=== PATIENT | male | born 1960 | race Caucasian/White ===

== ENCOUNTER 2018-10-14 23:07 | Inpatient (IN) ==
[2018-10-14] MEDS ORDERED: ALTEPLASE IV STA (23:19)
[2018-10-14] MEDS ORDERED: ALTEPLASE, RECOMBINANT 62 MG in EMPTY BAG 0 ML IV STA (23:19)
[2018-10-14] MEDS ORDERED: ALTEPLASE For Stroke IV STA (23:19)
[2018-10-14] MEDS ORDERED: RECOMBINANT IV STA (23:19)
--- NOTE | 2018-10-14 23:25 | CT Scan Report ---
CT OF THE HEAD WITHOUT CONTRAST CLINICAL HISTORY: Stroke symptoms. COMPARISON STUDY: No previous studies for comparison. CT DOSE: 614.27 mGy.cm TECHNIQUE: Helical axial images of the head were obtained without IV contrast. Automated exposure con trol was utilized for the study. A dose lowering technique was utilized adhering to the principles o f ALARA. FINDINGS: No acute intracranial hemorrhage is present. The patient is mildly tilted. Mild asymmetry o f the lateral ventricles is noted. The basilar cisterns are patent. There are no extra-axial collecti ons. There are no findings to suggest acute dural sinus thrombosis or acute territorial infarct. Ther e are no significant calvarial abnormalities. IMPRESSION: 1. No acute intracranial hemorrhage. 2. Asymmetry of the lateral ventricles, a finding of questionable significance. Electronically signed by: Carrington Adan M.D. 10/14/2018 11:24 PM
[2018-10-14 23:42] LABS: iSTAT Creatinine 1.3 mg/dl (0.6-1.3); iSTAT Ionized Calcium 1.1 mmol/l (1.12-1.32); iSTAT Potassium 3.9 mEq/L (3.3-5.0)
[2018-10-14 23:43] LABS: Basophils # (auto) 0.03 K/uL (0-0.2); Basophils % (auto) 0.5 %; Eosinophils % (auto) 1.5 %; Hematocrit (blood only) 44.1 % (42-52); Hemoglobin 15.9 g/dL (14.0-18.0); Immature Granulocytes # (auto) 0.03 K/uL (0.00-0.02); Immature Granulocytes % (auto) 0.5 %; Lymphocytes # (auto) 2.46 K/uL (1.2-3.4); Lymphocytes % (auto) 37.7 %; Mean Corpuscular Hgb Conc 36.1 g/dL (32-36); Mean Corpuscular Volume 96.5 fL (80-100); Mean Platelet Volume 10.4 fL (7.4-10.4); Monocytes # (auto) 0.65 K/uL (0.11-0.59); Neutrophils # (auto) 3.25 K/uL (1.4-6.5); Neutrophils % (auto) 49.8 %; Platelet Count 163 K/uL (130-400); RDW Coefficient of Variation 12.1 % (11.5-14.5); RDW Standard Deviation 42.8 fL (36.4-46.3); Red Blood Count 4.57 M/uL (4.7-6.1); White Blood Count 6.52 K/uL (4.8-10.8)
[2018-10-14 23:53] LABS: Partial Thromboplastin Time 26.2 Seconds (21.0-31.0); Prothrombin Time 10.5 Seconds (9.0-12.0)
[2018-10-15 00:01] LABS: Alanine Aminotransferase 26 U/L (12-78); Albumin Level 3.6 gm/dl (3.4-5.0); Aspartate Aminotransferase 18 U/L (15-37); BUN Creatinine Ratio 14.5 (10-20); Blood Urea Nitrogen 17 mg/dl (7-18); Calcium 8.9 mg/dl (8.5-10.1); Carbon Dioxide 28 mmol/L (21-32); Chloride 107 mmol/L (98-107); Est GFR (African American) 81.4; Est GFR (Non-African American) 70.3; Glucose 90 mg/dl (70-99); Magnesium 2.5 mg/dl (1.8-2.4); Potassium 3.9 mmol/L (3.5-5.1); Sodium 140 mmol/L (136-145)
[2018-10-15 00:03] LABS: Amphetamines+Metham, Urine Neg (Neg); Barbiturates, Urine Neg (Neg); Benzodiazepine, Urine Neg (Neg); Cocaine, Urine Neg (Neg); MDMA (Ecstacy), Urine Neg (Neg); Methadone, Urine Neg (Neg); Opiate, Urine Neg (Neg); Phencyclidine, Urine Neg (Neg)
[2018-10-15] MEDS ORDERED: OPTIRAY 320 125ml IV PRN (00:03)
[2018-10-15 00:06] LABS: Albumin Globulin Ratio 1.2 (0.9-2); Alkaline Phosphatase 96 U/L (45-117); Bilirubin,Total 0.6 mg/dl (0.2-1); Globulin 3.1 gm/dl (2.5-4.0); Total Protein 6.7 gm/dl (6.4-8.2); Troponin I < 0.015 ng/ml (0-0.045)
[2018-10-15 02:21] LABS: Appearance Urine Clear (Clear); Bilirubin Urine Negative (Negative); Blood Urine Negative (Negative); Color Urine Yellow; Glucose Urine UA Negative (Negative); Ketones Urine Negative (Negative); Leukocyte Esterase Urine Negative (Negative); Nitrite Urine Negative (Negative); Protein Urine Negative (Negative); Specific Gravity Urine 1.019 (1.000-1.030); Urobilinogen Urine Negative (Negative); pH Urine 7.5 (4.5-7.5)
[2018-10-15] MEDS ORDERED: ICU PROTOCOL FOR HYPERGLYCEMIA PRN (03:13)
[2018-10-15] MEDS ORDERED: PHARMACIST DISCHARGE MED REC CONSULT PRN (03:21)
--- NOTE | 2018-10-15 03:32 | History and Physical Report ---
DATE OF ADMISSION: 10/15/2018 CHIEF COMPLAINT: Acute CVA. HISTORY OF PRESENT ILLNESS: This is a 58-year-old male, apparently no past medical history, he is not from area, he is visiting, he seemed to went for fishing and was driving back with his buddies in the car when he was slurring speech, 911 was called and was brought into the hospital. Initially he had slurred speech and also flaccid right extremities. This episode happened around 9:30, he was in the ER, around 11:30, TPA was given, his weakness in the right extremities has improved. His speech has improved, but he still has some memory issues. He says he is seeing double vision, but counting the fingers fine. Could not get much history from the patient. He knows that he is in the hospital and tell the month and year of his date of . Knows that this is the 5th month, but he says the year is 2011. Was somewhat drowsy and goes back to sleep. Will not get any history from the patient at this time, brother was here who left by the time I saw the patient, tried to call his brother and went to his voicemail but brother called back. Brother says as far as he knows patient not taking any medications and don't have any medical problems. Brother was not with the patient when the episode happened. ALLERGIES: No known drug allergies. PAST MEDICAL HISTORY: None as per the brother. MEDICATIONS: None. PAST SURGICAL HISTORY: Unobtainable at this time. SOCIAL HISTORY: Unobtainable at this time. FAMILY HISTORY: Unobtainable at this time. REVIEW OF SYSTEMS: Unobtainable at this time. PHYSICAL EXAMINATION: GENERAL: The patient is moderate built, somewhat drowsy. VITAL SIGNS: Temperature 36.5, pulse 50, respiratory rate 13, blood pressure 128/81, oxygen 93% room air. HEENT: No pallor, no icterus. Pupils equal, round, and reactive to light. NECK: No JVD, no neck mass, no carotid bruit. CARDIOVASCULAR: S1, S2 heard, regular rate and rhythm, no murmur, no gallop. RESPIRATORY SYSTEM: Normal AP diameter. No accessory muscle use. No wheezing, no crackles. ABDOMEN: Soft, bowel sounds present. Nontender. No distention. CENTRAL NERVOUS SYSTEM: Alert and awake and oriented to name and place, not good with the dates. Power 5/5 in all extremities. His sensation is intact. Position sense intact. [id number] test normal. No pronator drift. Speech is clear. Obeys simple commands but comprehension impaired at this time. EXTREMITIES: No edema, no erythema. LABORATORY DATA: WBC 6.5, hemoglobin 15.9, hematocrit 44.1, platelets 163. PT 10.5, INR 1, APTT 26.2. Sodium 140, potassium 3.9, chloride 107, bicarbonate 28, BUN 17, creatinine 1.1, serum glucose 90, calcium 8.9, magnesium 2.5, total bilirubin 0.6, AST 18, ALT 26, alkaline phosphatase 96, troponin I less than 0.015. Urinalysis negative. Toxicology screen negative. CT of the head, no acute intracranial findings. Asymmetry of the lateral ventricles finding of questionable significance. CT of the head and neck unremarkable as unofficial reports so we will wait for official report. EKG: Sinus bradycardia with a rate of 55. Nonspecific ST changes seen. ASSESSMENT AND PLAN: This is a 58-year-old male who presents with acute stroke. 1. Acute stroke with flaccid right extremities and slurred speech, status post TPA and right extremity weakness and speech improved, but still somewhat confused, says he is seeing double vision. Apparently no medical problems. Labs are okay so far. We will admit and monitor in the ICU, will do MRI of the head, echocardiogram, follow the official report of CTA of the head and neck. Start on high dose statin and start aspirin when it is safe to start. 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 Deep venous thrombosis prophylaxis, SCDs. Addendum: Lyme screen positive. Follow confirmation. empiric Doxycycline. DISPOSITION: Close monitor in the ICU. Level 1 full code. MTDD
[2018-10-15 03:47] LABS: Basophils # (auto) 0.03 K/uL (0-0.2); Basophils % (auto) 0.5 %; Eosinophils # (auto) 0.09 K/uL (0-0.5); Eosinophils % (auto) 1.5 %; Hematocrit (blood only) 42.8 % (42-52); Hemoglobin 15.2 g/dL (14.0-18.0); Immature Granulocytes # (auto) 0.01 K/uL (0.00-0.02); Immature Granulocytes % (auto) 0.2 %; Lymphocytes # (auto) 2.51 K/uL (1.2-3.4); Lymphocytes % (auto) 40.7 %; Mean Corpuscular Hgb Conc 35.5 g/dL (32-36); Mean Corpuscular Volume 95.1 fL (80-100); Mean Platelet Volume 10.7 fL (7.4-10.4); Monocytes % (auto) 9.7 %; Neutrophils # (auto) 2.92 K/uL (1.4-6.5); Neutrophils % (auto) 47.4 %; Platelet Count 174 K/uL (130-400); RDW Coefficient of Variation 12.2 % (11.5-14.5); RDW Standard Deviation 42.3 fL (36.4-46.3); White Blood Count 6.16 K/uL (4.8-10.8)
[2018-10-15] MEDS: SODIUM CHLORIDE 0.9% 1000ML 1,000 ML IV SCH ×2 (03:54→17:16)
--- NOTE | 2018-10-15 04:13 | Critical Care Consultation ---
Date of Consultation October 15, 2018 Assessment & Plan (1) Admitted to intensive care unit: Reason Critically Ill: 58-year-old male with acute CVA and resolved RIGHT- sided hemiparalysis. NEURO - * CAM ICU: NEGATIVE * Acute CVA s/p TPA administration: * Initial CT non-contrast unremarkable. * f/u CTA head/neck w/o acute findings. * Day [address] * f/u MRI, Echo ordered. * Appreciate Neuro guidance. CARDIAC/VASCULAR - * No h/o cardiovascular disease. * Is bradycardic in the 40s-50s. Question as to clinical significance. * Monitor on telemetry. RESPIRATORY - * No h/o pulmonary disease. * Saturating well. GI/NUTRITION - * No concerns. * Passed his dysphagia screening. * Will add AM diet. RENAL/LYTES - * No significant electrolyte abnormalities. * IVF: NSS@100mL/hr - * Perry in place - Strict I&Os. ENDO - * No h/o DM or Thyroid Dz * BSGs per unit protocol. ISS --> gtt per unit policy. HEME - * s/p TPA administration: * Continue per hospital protocol. * Monitor closely for bleeding. ID - * No concerns for infectious contribution at this time. LINES/IV ACCESS - * PIVs x2 DVT PROPHYLAXIS - * Will hold s/p TPA administration. * SCDs I have personally spent 35 minutes of critical care time in the direct management of this patient. This is a life/limb threatening event. This includes time spent evaluating patient, direct bedside care, chart review, placing orders, interpretation of diagnostic studies, discussion with consultants, patient, and family members, as well as other required patient management activities. This time is exclusive of all separately billable procedures, and teaching time and separate from and in addition to any other critical care service time. Thank you for allowing us to participate in the care of this patient. Please refer to my attending physician's documentation for any further recommendations. (2) Stroke: (3) Word finding difficulty: History of Present Illness Attending Physician: Saranya Coffman MD Patient is a 58-year-old male with no contributory past medical history who initially presented to the emergency department with acute CVA symptoms including altered level of consciousness and right-sided flaccid paralysis. His symptoms initially started at 9:30 PM and presentation to the emergency department at 11:30 PM. He received TPA after negative noncontrast CT of the brain. Shortly after, he developed near complete resolve all symptoms. He had a negative CTA of the head and neck as well. Patient remains with some word finding issues, but otherwise has nearly completely resolved at this point. On evaluation in the ICU, the patient is awake, alert, and oriented. He does have issues with word finding, but otherwise appears appropriate and without focal neurological deficits. Patient takes no daily medications. 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 All else were negative. Physical Exam Physical Exam: VITAL SIGNS - Vital signs and nursing notes were reviewed. GENERAL - 58-year-old male appearing his stated age who is in no acute distress. Communicates well with provider. Does have issues with word finding. HEAD - Normocephalic, Atraumatic. No Simpson's Sign or Raccoon's Eyes. No depressed skull fractures palpable. EYES - PERRL with EOMI bilaterally. Sclera anicteric. Palpebral conjunctiva pink and moist with no injection noted. EARS - No deformities of external structures noted on gross examination bilaterally. NOSE - Midline and without cyanosis. No epistaxis or purulent drainage noted. Septum midline without deviation or septal hematoma noted. MOUTH/OROPHARYNX - Without perioral cyanosis. Buccal mucosa pink and moist and without leukoplakia. Tongue midline with equal elevation of palate bilaterally. No tonsillar hypertrophy, erythema, or exudates noted. Good dentition noted. NECK - Neck with FROM. Supple to palpation. No nuchal rigidity. LUNGS - Chest wall symmetric without accessory muscle use, intercostals retractions, or central cyanosis. Normal vesicular breath sounds CTA B/L. No wheezes, rales, or rhonchi appreciated. CARDIAC - RRR with S1/S2. No murmur, rubs, or gallops appreciated. ABDOMEN - Abdominal contour flat without pulsations or visible masses. BS normoactive all four quadrants. No tenderness, palpable masses, hepatosplenomegaly, or ascites noted. EXTREMITIES - No pretibial edema present. +3/5 radial and dorsalis pedis pulses palpated throughout. FROM with no tremors, fasciculations, or clonus noted on PROM throughout. +5/5 strength noted in UE/LE bilaterally. NEUROLOGIC - Cranial nerves II through XII grossly intact. Sensory intact to light touch throughout. Patellar reflexes +2/4 present. Patient able to perform rapid alternating movements appropriately. Negative Romberg and Pronator Drift. Difficulty with word finding. PSYCH - A&Ox3 and cooperates fully with examiner. Pt is very pleasant and interacts well with examiner. Results & Data Vital Signs (Past 12 Hours) Vital Signs Temp Pulse Pulse Resp BP BP Pulse Ox 10/15/18 04:00 36.5 C 63 16 144/87 H 98 10/15/18 03:30 53 L 16 130/100 98 10/15/18 03:00 36.3 C L 52 L 20 149/88 H 97 10/15/18 02:58 36.5 C 56 L 20 134/95 99 10/15/18 02:30 50 L 13 128/81 93 10/15/18 02:00 50 L 12 115/79 91 10/15/18 01:30 56 L 12 121/79 95 10/15/18 01:15 60 21 150/96 H 97 10/15/18 01:00 53 L 15 123/84 94 10/15/18 00:45 56 L 13 133/88 95 10/15/18 00:30 60 14 150/91 H 99 10/15/18 00:15 68 15 155/95 H 100 10/15/18 00:08 73 14 163/90 H 98 10/14/18 23:47 52 L 134/85 99 10/14/18 23:45 52 L 126/75 10/14/18 23:30 56 L 147/96 H 10/14/18 23:20 57 L 145/103 H 10/14/18 23:12 36.5 C 52 L 14 152/92 H 97 (1) Stroke CVA mechanism: other Qualified Code(s): I63.89 - Other cerebral infarction
[2018-10-15 04:15] LABS: BUN Creatinine Ratio 16.5 (10-20); Blood Urea Nitrogen 17 mg/dl (7-18); Calcium 8.5 mg/dl (8.5-10.1); Carbon Dioxide 24 mmol/L (21-32); Chloride 110 mmol/L (98-107); Creatinine Clr Calc Pharmacy 77.6 ml/min; Est GFR (African American) 90.9; Est GFR (Non-African American) 78.4; Glucose 94 mg/dl (70-99); Magnesium 2.4 mg/dl (1.8-2.4); Potassium 4.2 mmol/L (3.5-5.1); Sodium 139 mmol/L (136-145)
[2018-10-15 04:20] LABS: Chol HDL Ratio 3; Cholesterol 145 mg/dl (0-200); HDL Cholesterol 49 mg/dl; LDL Cholesterol Calculated 71 mg/dl; Triglycerides 124 mg/dl (0-150); Troponin I < 0.015 ng/ml (0-0.045); VLDL Cholesterol 25 mg/dl
[2018-10-15 04:34] LABS: Fibrinogen 186 mg/dl (184-400)
[2018-10-15 04:36] LABS: D Dimer 2350 ug/L FEU (0-500)
[2018-10-15 05:17] LABS: Lyme Ab IgG w/WB Rflx Negative (Negative)
[2018-10-15 05:37] LABS: Lyme Ab IgM w/WB Rflx Positive (Negative)
--- NOTE | 2018-10-15 05:40 | Emergency Department Note ---
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 (1.2-3.4) K/uL Mchenry # (Auto) 0.60 H (0.11-0.59) K/uL Eos # (Auto) 0.09 (0-0.5) K/uL Baso # (Auto) 0.03 (0-0.2) K/uL PT (9.0-12.0) Seconds POC INR (0.9-1.1) INR (0.9-1.1) APTT (21.0-31.0) Seconds PTT Ratio Fibrinogen (184-400) mg/dl D-Dimer (0-500) ug/L FEU POC Sodium (135-144) mEq/L Sodium 139 (136-145) mmol/L POC Potassium (3.3-5.0) mEq/L Potassium 4.2 (3.5-5.1) mmol/L POC Chloride (101-112) mEq/L Chloride 110 H (98-107) mmol/L Carbon Dioxide 24 (21-32) mmol/L POC Total CO2 (24-31) mEq/l Anion Gap 5.0 (3-11) POC Anion Gap (16-25) mmol/L POC BUN (7-18) mg/dl BUN 17 (7-18) mg/dl Creatinine 1.05 (0.6-1.4) mg/dl POC Creatinine (0.6-1.3) mg/dl Est Cr Clr Drug Dosing 77.6 Est GFR ( Amer) 90.9 Est GFR (Non-Af Amer) 78.4 BUN/Creatinine Ratio 16.5 (10-20) Glucose 94 (70-99) mg/dl POC Glucose (70-99) POC Glucose (other) (70-99) mg/dl Calcium 8.5 (8.5-10.1) mg/dl POC Ioniz Calcium Nancy (1.12-1.32) mmol/l Magnesium 2.4 (1.8-2.4) mg/dl Total Bilirubin (0.2-1) mg/dl AST (15-37) U/L ALT (12-78) U/L Alkaline Phosphatase (45-117) U/L Troponin I < 0.015 (0-0.045) ng/ml Total Protein (6.4-8.2) gm/dl Albumin (3.4-5.0) gm/dl Globulin (2.5-4.0) gm/dl Albumin/Globulin Ratio (0.9-2) Triglycerides 124 (0-150) mg/dl Cholesterol 145 (0-200) mg/dl LDL Cholesterol, Calc 71 mg/dl VLDL Cholesterol, Calc 25 mg/dl HDL Cholesterol 49 mg/dl Cholesterol/HDL Ratio 3 Urine Color Urine Appearance (Clear) Urine pH (4.5-7.5) Ur Specific Langston (1.000-1.030) Urine Protein (Negative) Urine Glucose (UA) (Negative) Urine Ketones (Negative) Urine Blood (Negative) Urine Nitrite (Negative) Urine Bilirubin (Negative) Urine Urobilinogen (Negative) Ur Leukocyte Esterase (Negative) Nasal Screen MRSA (PCR) (Negative) Urine Opiates Screen (Neg) Ur Methadone, Qual (Neg) Urine Barbiturates (Neg) Ur Phencyclidine (PCP) (Neg) U Amphetamin/Meth Scrn (Neg) MDMA (Ecstasy) Screen (Neg) U Benzodiazepines Scrn (Neg) Ur Cocaine Metabolite (Neg) U Marijuana (THC) Screen (Neg) Ethyl Alcohol mg/dL (0-3) mg/dl Lyme Disease IgG Ab Negative (Negative) Blood Type Antibody Screen Administered Medications Sodium Chloride (Nss 1000ml) 1,000 mls @ 100 mls/hr IV .Q10H ERIN Stop: 11/14/18 03:12 Last Admin: 10/15/18 03:54 Dose: 100 mls/hr Documented by: [id number] Discontinued Medications Alteplase, Recombinant 62 mg/ (EMPTY BAG) 62 mls @ 62 mls/hr IV ONCE STA Stop: 10/14/18 23:20 Last Infusion: 10/15/18 00:43 Dose: 0 mls/hr Documented by: [id number] Cosigned by: [id number] Admin: 10/14/18 23:36 Dose: 62 mls/hr Documented by: [id number] Cosigned by: [id number] Alteplase, Recombinant 6.8 mg/ (Syringe) 6.8 mls @ 6.8 mls/min IV ONCE STA Stop: 10/14/18 23:20 Last Admin: 10/14/18 23:34 Dose: 6.8 mls/min Documented by: [id number] Cosigned by: [id number] Ioversol (Optiray 320 125ml) 119 ml IV ONCE PRN PRN Reason: Interaction Checking Stop: 10/19/18 00:02 Last Admin: 10/15/18 00:03 Dose: 119 ml Documented by: [id number] Imaging Data Radiologist's Impression: Radiology results as stated below per my review and the radiologist's interpretation: CT OF THE HEAD WITHOUT CONTRAST CLINICAL HISTORY: Stroke symptoms. COMPARISON STUDY: No previous studies for comparison. CT DOSE: 614.27 mGy.cm TECHNIQUE: Helical axial images of the head were obtained without IV contrast. Automated exposure control was utilized for the study. A dose lowering technique was utilized adhering to the principles of ALARA. FINDINGS: No acute intracranial hemorrhage is present. The patient is mildly tilted. Mild asymmetry of the lateral ventricles is noted. The basilar cisterns are patent. There are no extra-axial collections. There are no findings to suggest acute dural sinus thrombosis or acute territorial infarct. There are no significant calvarial abnormalities. IMPRESSION: 1. No acute intracranial hemorrhage. 2. Asymmetry of the lateral ventricles, a finding of questionable significance. Electronically signed by: Carrington Adan M.D. 10/14/2018 11:24 PM ECG Data Attestation: I personally reviewed and interpreted this ECG as follows: Indication: altered mental status Blood Pressure Blood Pressure Findings: Elevated blood pressure Blood Pressure Disposition: further management by hospitalist Discharge Plan Visit Data *Final* Discharge Date/Time: 10/15/18 02:48 Chief Complaint: Stroke Alert Stated Complaint: STROKE ALERT ED Provider: Angus Roe Discharge Problem: Stroke Patient Disposition: Admitted As Inpatient Discharge Instructions Interventions: ED Discharge Assessment Last Done: 10/15/18 02:48 Discharge Problem: Stroke Qualifiers: CVA mechanism: other Qualified Code(s): I63.89 - Other cerebral infarction The scribe's documentation has been prepared under my direction and personally r eviewed by me in its entirety. I confirm that the note above accurately reflects all work, treatment, procedures, and medical decision making performed by me.
--- NOTE | 2018-10-15 06:47 | CT Scan Report ---
CT ANGIOGRAM OF THE BRAIN; CT ANGIOGRAM OF THE NECK CLINICAL HISTORY: Strokelike symptoms. Right-sided weakness. COMPARISON STUDY: Unenhanced CT of the brain performed with 10/14/2018. TECHNIQUE: Following the IV administration of 119 of Optiray 320, CT angiogram of the head and neck w as performed from the aortic arch to the vertex. Images are reviewed in the axial, sagittal, and aleja nal planes. 3-D MIPS images are created and assessed. IV contrast was administered without complicati on. All measurements were calculated based on NASCET criteria. A dose lowering technique was utilize d adhering to the principles of ALARA. CT DOSE: 665.17 mGy.cm FINDINGS: Brain parenchyma: The brain parenchyma is normal in appearance. There is no hemorrhage, mass effect, or evidence of acute territorial ischemia by CT criteria. There is no evidence of enhancing mass lesi on on the angiogram phase images. The ventricles, sulci, and cisterns are normal in configuration. Th ere is mild asymmetry of the lateral ventricles which is of doubtful significance. Vu-white matter differentiation is preserved. No extra-axial fluid collection is seen. Thoracic aorta: Visualized portions of the thoracic aorta are normal in caliber. The aortic arch demo nstrates standard 3-vessel anatomy. Right carotid arterial system: The right common carotid artery is widely patent, as are the right int ernal and external carotid arteries. Left carotid arterial system: The left common carotid artery is widely patent, as are the left manager of international al and external carotid arteries. Vertebral arteries: The vertebral arteries are widely patent and codominant. Subclavian arteries: Widely patent bilaterally. Intracranial vasculature: There is a large left posterior communicating artery. The internal carotid arteries are patent at the skull base, as are the anterior and middle cerebral arteries bilaterally. The vertebrobasilar system and posterior cerebral arteries are widely patent. The vertebral arteries are codominant. There is no aneurysm, high-grade stenosis, or focal vessel cut off seen throughout th e intracranial circulation. Jugular veins: Widely patent bilaterally. Dural sinuses: Patent. Lung apices: Partially visualized upper lobe lung parenchyma appears clear. Soft tissues: The visualized pharyngeal soft tissues are normal in appearance noting angiographic pha se technique. The oropharyngeal airway appears widely patent. The salivary and thyroid glands are nor mal in appearance. No cervical lymphadenopathy is seen. Skeletal structures: The calvarium appears intact. The cervical spine is within normal limits. Orbits: The bony orbits are intact. Orbital contents are normal in appearance. Sinuses and mastoids: There is minimal mucosal thickening within the left maxillary antrum. The remai tami paranasal sinuses are clear. The mastoid air cells are well pneumatized. IMPRESSION: 1. There is no hemorrhage, mass effect, or evidence of acute territorial ischemia by CT criteria noti ng angiographic phase technique. 2. Unremarkable CT angiogram of the brain. 3. Unremarkable CT angiogram of the neck. Electronically signed by: Jason Su M.D. 10/15/2018 6:45 AM
[2018-10-15] MEDS: ATORVASTATIN 40 MG TAB PO SCH (09:01)
[2018-10-15] MEDS: DOXYCYCLINE HYCLATE 100 MG in DEXTROSE 5% 100 ML IV SCH ×2 (09:44→21:33)
--- NOTE | 2018-10-15 10:51 | Critical Care Progress Note ---
Date of Service October 15, 2018 Assessment & Plan (1) Stroke: Neuro- CVA s/p TPA. symptoms improved. for echo, MRI with 1.7 cm infarct L thalamus/internal capsule, carotids patent on CTA neck. antiplatelets 24 hours after TPA. statin CV- HD stable Pulmonary- sat well on RA ID- no signs infection. lyme IgM postive await further studies Renal- cr ok GI- diet as tolerated passed dysphagia screen Heme- SCD proph. start chemical anticoagulation 24 hours after TPA Endocrine- blood sugars controlled Dispo- monitor in ICU post TPA Subjective improving. He has no complaints and feels like he is back to normal except his speech still with word finding difficulty Physical Exam Physical Exam: Constitutional: Comfortable NAD HEENT: normocephalic atraumatic. MMM. no cervical lymphadenopathy CV: RRR nl s1,s2 no murmurs rubs or gallops Lungs: clear to auscultation bilaterally. no accessory muscle use Abd: soft nontender nondistended. normal bowel sounds Ext: no edema. no cyanosis, no clubbing Skin: warm dry Neuro: alert and oriented. possible subtle R facial droop. strengh 5/5 in all ext. normal sensation to light touch. slow to answer some questions Psych: normal mood and affect Results & Data Vital Signs (Past 12 Hours) Vital Signs Temp Pulse Pulse Resp BP BP Pulse Ox 10/15/18 10:30 79 19 139/91 97 10/15/18 09:30 69 21 134/93 97 10/15/18 08:30 78 21 144/86 H 95 10/15/18 08:00 36.7 C 74 16 154/89 H 95 10/15/18 07:30 64 16 144/97 H 97 10/15/18 07:00 63 15 132/81 96 10/15/18 06:30 36.6 C 60 14 121/88 95 10/15/18 06:00 36.6 C 53 L 18 130/87 95 10/15/18 05:30 36.6 C 54 L 16 142/80 H 95 10/15/18 05:00 36.5 C 52 L 14 139/69 95 10/15/18 04:30 36.5 C 53 L 14 125/74 95 10/15/18 04:00 36.5 C 63 16 144/87 H 98 10/15/18 03:30 53 L 16 130/100 98 10/15/18 03:00 36.3 C L 52 L 20 149/88 H 97 10/15/18 02:58 36.5 C 56 L 20 134/95 99 10/15/18 02:30 50 L 13 128/81 93 10/15/18 02:00 50 L 12 115/79 91 10/15/18 01:30 56 L 12 121/79 95 10/15/18 01:15 60 21 150/96 H 97 10/15/18 01:00 53 L 15 123/84 94 10/15/18 00:45 56 L 13 133/88 95 10/15/18 00:30 60 14 150/91 H 99 10/15/18 00:15 68 15 155/95 H 100 10/15/18 00:08 73 14 163/90 H 98 10/14/18 23:47 52 L 134/85 99 10/14/18 23:45 52 L 126/75 10/14/18 23:30 56 L 147/96 H 10/14/18 23:20 57 L 145/103 H 10/14/18 23:12 36.5 C 52 L 14 152/92 H 97 (1) Stroke CVA mechanism: other Qualified Code(s): I63.89 - Other cerebral infarction
[2018-10-15] MEDS ORDERED: GADOBUTROL 30ML VIAL IV PRN (11:08)
--- NOTE | 2018-10-15 11:19 | Hospitalist Progress Note ---
Date of Service October 15, 2018 Assessment & Plan (1) Stroke: Admitted with symptoms of a stroke involving dysarthria and right hemiplegia Following stroke alert received TPA Initial CT scan of the head and CTA of the head and neck unremarkable Awaiting repeat his scans as per the protocol Does not have any risk factors Has had a similar episode about 1-1/2 to 2 years ago and was in the hospital for 1 day Lipid profile normal Echo has been fine pending Appreciate enrollment nurse input and recommendation Appreciate neurologist input and recommendation Patient is clinically much improved with almost resolved of his symptoms Lyme screen was found to be positive Doxycycline has been started empirically Await Western blot Subjective 10/15 The patient was seen and examined in ICU He is a 58-year-old gentleman without significant past medical history and w ithout on any prescription medicine was admitted with strokelike symptoms and received TPA His symptoms have been improving and almost resolved Only complaints minimal dysarthria Review of Systems Review of Systems: All systems reviewed and are unremarkable except as noted below Neurologic: + abnormal speech (Minimal dysarthria) Physical Exam Physical Exam: No apparent distress at rest Constitutional: well developed and well nourished; no acute distress Eyes: PERRL, conjunctivae normal, anicteric sclerae ENMT: external ear and nose normal, oropharynx normal Neck: trachea midline, no thyromegaly Respiratory: normal respiratory effort, lungs clear to auscultation Cardiovascular: RRR, no murmur, no edema Gastrointestinal (Abdomen): normal bowel sounds, soft, nontender, no hepatosplenomegaly Musculoskeletal: No acute arthritis involving any joints Neurologic: normal touch/pain/proprioception and moves all extremities; no focal motor deficits Speech / Cognition: + abnormal speech (Minimal dysarthria) Lymphatic: no cervical or axillary lymphadenopathy Results & Data Vital Signs (Past 12 Hours) Vital Signs Temp Pulse Pulse Resp BP BP Pulse Ox 10/15/18 10:30 79 19 139/91 97 10/15/18 09:30 69 21 134/93 97 10/15/18 08:30 78 21 144/86 H 95 10/15/18 08:00 36.7 C 74 16 154/89 H 95 10/15/18 07:30 64 16 144/97 H 97 10/15/18 07:00 63 15 132/81 96 10/15/18 06:30 36.6 C 60 14 121/88 95 10/15/18 06:00 36.6 C 53 L 18 130/87 95 10/15/18 05:30 36.6 C 54 L 16 142/80 H 95 10/15/18 05:00 36.5 C 52 L 14 139/69 95 10/15/18 04:30 36.5 C 53 L 14 125/74 95 10/15/18 04:00 36.5 C 63 16 144/87 H 98 10/15/18 03:30 53 L 16 130/100 98 10/15/18 03:00 36.3 C L 52 L 20 149/88 H 97 10/15/18 02:58 36.5 C 56 L 20 134/95 99 10/15/18 02:30 50 L 13 128/81 93 10/15/18 02:00 50 L 12 115/79 91 10/15/18 01:30 56 L 12 121/79 95 10/15/18 01:15 60 21 150/96 H 97 10/15/18 01:00 53 L 15 123/84 94 10/15/18 00:45 56 L 13 133/88 95 10/15/18 00:30 60 14 150/91 H 99 10/15/18 00:15 68 15 155/95 H 100 10/15/18 00:08 73 14 163/90 H 98 10/14/18 23:47 52 L 134/85 99 10/14/18 23:45 52 L 126/75 10/14/18 23:30 56 L 147/96 H 10/14/18 23:20 57 L 145/103 H Laboratory Results Short CBC 10/14/18 10/15/18 Range/Units 23:28 03:20 WBC 6.52 6.16 (4.8-10.8) K/uL Hgb 15.9 15.2 (14.0-18.0) g/dL Hct 44.1 42.8 (42-52) % Plt Count 163 174 (130-400) K/uL BMP 10/14/18 10/15/18 23:28 03:20 Sodium 140 139 Potassium 3.9 4.2 Chloride 107 110 H Carbon Dioxide 28 24 BUN 17 17 Creatinine 1.15 1.05 Glucose 90 94 Calcium 8.9 8.5 Cardiac Enzymes 10/14/18 10/15/18 Range/Units 23:28 03:20 Troponin I < 0.015 < 0.015 (0-0.045) ng/ml Liver Function 10/14/18 Range/Units 23:28 Total Bilirubin 0.6 (0.2-1) mg/dl AST 18 (15-37) U/L ALT 26 (12-78) U/L Alkaline Phosphatase 96 (45-117) U/L Albumin 3.6 (3.4-5.0) gm/dl Urine 10/14/18 Range/Units Unknown Urine Color Yellow Urine Appearance Clear (Clear) Urine pH 7.5 (4.5-7.5) Ur Specific Bronson 1.019 (1.000-1.030) Urine Protein Negative (Negative) Urine Glucose (UA) Negative (Negative) Medications Administered Current Inpatient Medications Atorvastatin Calcium (Lipitor) 40 mg PO QAM ERIN Stop: 11/14/18 08:59 Last Admin: 10/15/18 09:01 Dose: 40 mg Documented by: Gadobutrol (Gadavist 30ml) 7 ml IV ONCE PRN PRN Reason: Interaction Checking Stop: 10/19/18 11:07 Last Admin: 10/15/18 11:08 Dose: 7 ml Documented by: Sodium Chloride (Nss 1000ml) 1,000 mls @ 100 mls/hr IV .Q10H ERIN Stop: 11/14/18 03:12 Last Infusion: 10/15/18 09:44 Dose: 0 mls/hr Documented by: Doxycycline Hyclate 100 mg/ (Dextrose) 110 mls @ 50 mls/hr IV Q12H ERIN Stop: 10/25/18 09:59 Last Infusion: 10/15/18 10:35 Dose: 0 mls/hr Documented by: Miscellaneous (Icu Protocol For Hyperglycemia) 1 ea N/A PRN PRN; Protocol PRN Reason: Hyperglycemia Protocol Stop: 10/17/18 03:12 Miscellaneous Information (Pharmacist Discharge Med Rec Consult) 1 ea N/A DAILY PRN PRN Reason: Consult Stop: 11/14/18 03:20 (1) Stroke CVA mechanism: other Qualified Code(s): I63.89 - Other cerebral infarction
--- NOTE | 2018-10-15 11:34 | Magnetic Resonance Report ---
MRI OF THE BRAIN COMBO CLINICAL HISTORY: Change in mental status. Memory loss. COMPARISON STUDY: CT of the brain dated 10/14/[address] angiogram of the brain dated 10/15/2018. TECHNIQUE: MRI of the brain was performed utilizing various T1 and T2-weighted sequences in the axial , sagittal, and coronal planes. Contrast-enhanced sequences were acquired following the administratio n of 7 cc of Gadavist. FINDINGS: Brain parenchyma: There is a 1.7 cm focus of restricted diffusion centered in the left thalamus and l eft internal capsule consistent with acute to subacute ischemia. No additional foci of acute ischemia are identified. There is no hemorrhage or mass effect. No enhancing mass lesion is identified on th e postcontrast images. No extra-axial fluid collection is seen. The cerebellar tonsils are normal in configuration. Ventricles, sulci, and cisterns: Normal in configuration. Pituitary and sella: Unremarkable. Intracranial vasculature: Normal flow voids are maintained at the skull base. Orbits: The bony orbits are grossly intact. Orbital contents are normal in appearance. Sinuses and mastoids: Clear. Calvarium: Unremarkable. Cervical cord: Partially visualized cervical spinal cord is normal in morphology and signal intensity . IMPRESSION: 1. There is a 1.7 cm focus of restricted diffusion centered in the left thalamus and left internal ca psule. This is consistent with acute to subacute ischemia. 2. No additional foci of acute ischemia are identified. 3. There is no hemorrhage or mass effect. Electronically signed by: Jason Su M.D. 10/15/2018 11:32 AM
--- NOTE | 2018-10-15 12:45 | Consultation Report ---
DATE OF CONSULTATION: 10/15/2018 REASON FOR CONSULTATION: Possible stroke. HISTORY OF PRESENT ILLNESS: The patient is a 58-year-old right-handed male who may have hyperlipidemia, was visiting the area yesterday, was driving back from a fishing trip when he noted that his vision was impaired and his speech was impaired as well as right-sided weakness. He pulled over and became flaccid on the right side. Friends called 911 and he was brought to the hospital. Initially, he was mute and flaccid. Improvement occurred, although I believe it was after TPA was given. His speech improved, strength improved as well. The patient had been in his usual state of health. He has not recently been ill, had not had any head or neck injury, chest pain, palpitation, shortness of breath, medical or dental procedures. He had not had any recent rashes. He has a history of tick exposure. Apparently several years ago, he had an episode of language dysfunction lasting 2 minutes, was admitted to a hospital at home, workup was unremarkable. PAST MEDICAL HISTORY: Unknown. Perhaps hyperlipidemia. No history of migraine, NM, stroke, DVT, PE, or cancer. PAST SURGICAL HISTORY: Possible elbow surgery. SOCIAL HISTORY: Nonsmoker. The patient occasionally drinks and occasionally smokes marijuana. 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 FAMILY HISTORY: Father of lung cancer, may have had carotid sinus syncope. Mother, hyperlipidemia. Father had permanent pacemaker. Siblings well. HOME MEDICATIONS: Not known. DIAGNOSTIC STUDIES: Initial CT of the head showed some asymmetry of the left hemisphere with some crowding of the left lateral ventricle. CTA of head and neck showed no significant abnormality. MRI of the brain performed this morning showed a 1.7 cm focus of restricted diffusion in the left thalamus, left internal capsule consistent with acute to subacute ischemia. The patient's EKG showed sinus bradycardia with a rate of 55. White count, H and H, platelet count were normal. D-dimer 2350. PT 10.5, INR 1.0, PTT 26.2. Chemistry profile notable for a chloride of 110. Urinalysis negative. Toxicology negative. Lyme IgM positive, IgG negative; confirmatory pending. Hypercoagulable state pending. PHYSICAL EXAMINATION: VITAL SIGNS: 139/91, 79, 19, 36.7, O2 sat 97%. GENERAL: The patient is awake and alert. His mentation is mildly slow. There is in general a minor word finding difficulty, but there is a significant lack of content to his communicated speech. Naming, repetitions, 3-step commands are normal. The patient's history is significantly impaired by his language. HEAD: Normocephalic, atraumatic. NECK: No carotid vertebral bruits. HEART: Regular rate and rhythm. EXTREMITIES: Radial pulses and posterior tibial pulses intact. No calf swelling or tenderness. NEUROLOGIC: Pupils are equal, round, reactive to light. The optic nerves are grossly normal. Normal hardy, motility, facial sensation, facial symmetry. Speech is nondysarthric. Language as above. Strength is full. There is no drift. There are normal rapid alternating movements. Symmetric reflexes. Downgoing toes. [id number] and [id number] are normal. Intact light touch and temperature. IMPRESSION: Probable deep white matter infarction proven by MRI. PLAN: Echo with bubble study, telemetric monitoring, hypercoagulable state workup. When able, to be on antiplatelet therapy, would recommend aspirin, Plavix, statin. Although this is apparently a small vessel infarction, the patient will need cardiac monitoring as an outpatient. We will follow with you.
--- NOTE | 2018-10-15 23:05 | CT Scan Report ---
CT SCAN OF THE BRAIN WITHOUT IV CONTRAST CLINICAL HISTORY: Follow-up stroke. Status post TPA. COMPARISON STUDY: CT of the brain dated 10/14/2018. MRI of the brain dated 10/15/2018. TECHNIQUE: Unenhanced axial CT scan of the brain is performed from the vertex to the skull base. A d ose lowering technique was utilized adhering to the principles of ALARA. CT DOSE: 614.27 mGy.cm FINDINGS: Brain parenchyma: There is an evolving lacunar infarct centered in the left thalamus which measures 1 .9 cm. There is no hemorrhage or mass effect. There is no evidence of acute territorial ischemia by C T criteria. No extra-axial fluid collection is seen. Ventricles, sulci, cisterns: Normal in configuration. Intracranial vasculature: There is mild atherosclerotic calcification of the cavernous carotid arteri es. Calvarium: Unremarkable. Sinuses and mastoids: The visualized paranasal sinuses are clear. The mastoid air cells are well pneu matized. Orbits: The bony orbits are grossly intact. IMPRESSION: 1. There is an evolving lacunar infarct centered in the left thalamus. 2. There is no hemorrhage or mass effect. 3. No additional foci of acute ischemia are identified by CT. Electronically signed by: Jason Su M.D. 10/15/2018 11:03 PM
--- NOTE | 2018-10-16 00:22 | Critical Care Progress Note ---
Date of Service October 16, 2018 Assessment & Plan (1) Admitted to intensive care unit: Admitted to intensive care unit: Reason Critically Ill: 58-year-old male with acute CVA and resolved RIGHT-sided hemiparalysis. NEURO - * CAM ICU: NEGATIVE * Acute CVA s/p TPA administration: * MRI confirms LEFT thalamic CVA. * Repeat 24hr Non-contrast CT shows evolving lacunar infarct in the LEFT thalamus w/o hemorrhagic conversion. * Reevaluation of the patient shows slight overall improvement of mental s tatus. He still remains with some word finding, but this did appear improved from 24 hours ago. His strength, reflexes, and ROM remain equal and full throughout all extremities bilaterally. Overall, he has shown slight improvement. * Will add AM dosing of Plavix, ASA per Neuro. Statin already on board. * Day [address] * Appreciate Neuro guidance. CARDIAC/VASCULAR - * No h/o cardiovascular disease. * Is bradycardic in the 40s-50s. Question as to clinical significance. --> patient has shown more consistent rates in the 50s-60s. * Monitor on telemetry. RESPIRATORY - * No h/o pulmonary disease. * Saturating well. GI/NUTRITION - * No concerns. * Passed his dysphagia screening. * Continue w/ diet as tolerated. RENAL/LYTES - * No significant electrolyte abnormalities. * IVF: NSS@100mL/hr --> will d/c if patient has adequate PO intake. - * Perry in place. * Will d/c this AM to prevent CAUTI. ENDO - * No h/o DM or Thyroid Dz * BSGs per unit protocol. ISS --> gtt per unit policy. HEME - * s/p TPA administration: * Continue per hospital protocol. * Monitor closely for bleeding. ID - * Lyme IgM Positive: * Will change Doxy to PO. LINES/IV ACCESS - * PIVs x2 DVT PROPHYLAXIS - * Will add ASA and Plavix w/ hopes for early ambulation in the next several hours w/ PT/OT eval. * SCDs I have personally spent 35 minutes of critical care time in the direct management of this patient. This is a life/limb threatening event. This includes time spent evaluating patient, direct bedside care, chart review, placing orders, interpretation of diagnostic studies, discussion with consultants, patient, and family members, as well as other required patient management activities. This time is exclusive of all separately billable procedures, and teaching time and separate from and in addition to any other critical care service time. Thank you for allowing us to participate in the care of this patient. Please refer to my attending physician's documentation for any further recommendations. (2) Word finding difficulty: (3) Stroke: Supervising Physician Co-Signing Physician Notes I have personally evaluated and examined this patient. I agree with assessment and plan of Lois West PA-C. Patient has had significant improvement in his stroke scale he is ambulatory around the department and is stable for downgrade out of the ICU. Subjective Patient initially admitted to the ICU status post TPA administration in the setting of CVA with RIGHT-sided deficits and altered level of consciousness. Patient initially had an NIH scale of 18 which did improve to 1 after administration of TPA. CTA of the head and neck were otherwise unremarkable. Patient had an unremarkable echocardiogram for septal defect. MRI suggestive of 1.7 cm LEFT thalamic occlusion without other areas of acute ischemia. No hemorrhage appreciated. Patient remained at his baseline throughout the day. He was evaluated from an interdisciplinary approach. Lyme titer was found to be positive and the patient was placed empirically on doxycycline pending Western blot study. Per neurology recommendation, the patient should be started on aspirin, statin, and Plavix. Patient has had no worsening neurologic deficits throughout his stay. On review of 24-hour CT study, images consistent with evolving lacunar infarct centered in the LEFT thalamus. No hemorrhagic conversion appreciated. Images were reviewed by myself. I did independently evaluate the patient. Patient was awoken from sleep. He is awake and alert. He is able to provide name, date of , he is slow on addressing location and still remains with general word searching issues. Otherwise, he appears to be at baseline from yesterday. He reports that his vision has improved and he is without persistent double vision. Overall, he offers no complaints and feels as though he is improving. He denies any complaints of weakness in the extremities. Review of Systems Review of Systems: A complete 10 point review of systems was reviewed with the patient with pertinent positives and negatives as per history of present illness. All else were negative. Physical Exam Physical Exam: VITAL SIGNS - Vital signs and nursing notes were reviewed. GENERAL - 58-year-old male appearing his stated age who is in no acute distress. Communicates well with provider. Does still have issues with word finding. HEAD - Normocephalic, Atraumatic. EYES - PERRL with EOMI bilaterally. EARS - No deformities of external structures noted on gross examination bilate rally. NOSE - Midline and without cyanosis. No epistaxis or purulent drainage noted. MOUTH/OROPHARYNX - Without perioral cyanosis. NECK - Neck with FROM. LUNGS - Chest wall symmetric without accessory muscle use, intercostals retractions, or central cyanosis. Normal vesicular breath sounds CTA B/L. No wheezes, rales, or rhonchi appreciated. CARDIAC - RRR with S1/S2. No murmur, rubs, or gallops appreciated. ABDOMEN - Abdominal contour flat without pulsations or visible masses. BS normoactive all four quadrants. No tenderness, palpable masses, hepatosplenomegaly, or ascites noted. EXTREMITIES - No pretibial edema present. +3/5 radial and dorsalis pedis pulses palpated throughout. FROM with no tremors, fasciculations, or clonus noted on PROM throughout. +5/5 strength noted in UE/LE bilaterally. NEUROLOGIC - Cranial nerves II through XII grossly intact. Sensory intact to light touch throughout. Patellar reflexes +2/4 present. Patient able to perform rapid alternating movements appropriately. Negative Drift. Persistent difficulty with word finding and slow with communication, but this has seemed to improve from yesterday. PSYCH - A&Ox3 and cooperates fully with examiner. Pt is very pleasant and interacts well with examiner. Results & Data Vital Signs (Past 12 Hours) Vital Signs Temp Pulse Pulse Resp BP BP Pulse Ox 10/15/18 23:30 36.8 C 53 L 16 143/97 H 94 10/15/18 22:30 36.8 C 54 L 18 113/86 96 10/15/18 21:30 36.7 C 51 L 20 118/74 93 10/15/18 20:30 36.8 C 52 L 16 138/83 95 10/15/18 19:30 37 C 56 L 20 141/88 H 96 10/15/18 18:30 60 17 134/75 91 10/15/18 17:30 71 13 129/84 95 10/15/18 16:30 37 C 70 21 148/89 H 94 10/15/18 15:30 52 L 15 126/47 L 93 10/15/18 14:30 61 22 141/87 H 97 10/15/18 13:30 63 10 L 139/83 97 10/15/18 12:30 37.1 C 63 13 130/82 95 (1) Stroke CVA mechanism: other Qualified Code(s): I63.89 - Other cerebral infarction
[2018-10-16 05:06] LABS: Basophils # (auto) 0.04 K/uL (0-0.2); Basophils % (auto) 0.6 %; Eosinophils # (auto) 0.07 K/uL (0-0.5); Hematocrit (blood only) 45.5 % (42-52); Hemoglobin 16.1 g/dL (14.0-18.0); Immature Granulocytes # (auto) 0.02 K/uL (0.00-0.02); Immature Granulocytes % (auto) 0.3 %; Lymphocytes % (auto) 38.7 %; Mean Corpuscular Hgb Conc 35.4 g/dL (32-36); Mean Corpuscular Volume 97.4 fL (80-100); Mean Platelet Volume 10.5 fL (7.4-10.4); Monocytes # (auto) 0.59 K/uL (0.11-0.59); Monocytes % (auto) 8.5 %; Neutrophils # (auto) 3.56 K/uL (1.4-6.5); Neutrophils % (auto) 50.9 %; Platelet Count 162 K/uL (130-400); RDW Coefficient of Variation 12.3 % (11.5-14.5); RDW Standard Deviation 43.2 fL (36.4-46.3); Red Blood Count 4.67 M/uL (4.7-6.1); White Blood Count 6.98 K/uL (4.8-10.8)
[2018-10-16 05:24] LABS: BUN Creatinine Ratio 12.9 (10-20); Calcium 8.2 mg/dl (8.5-10.1); Creatinine Clr Calc Pharmacy 66.8 ml/min; Est GFR (African American) 75.8; Est GFR (Non-African American) 65.4; Magnesium 2.1 mg/dl (1.8-2.4); Phosphorus 2.5 mg/dl (2.5-4.9); Potassium 4.3 mmol/L (3.5-5.1)
[2018-10-16 06:27] LABS: Estimated Average Glucose 114 mg/dl; Hemoglobin A1C 5.6 % (4.5-5.6)
[2018-10-16] MEDS: ATORVASTATIN 40 MG TAB PO SCH (08:10)
[2018-10-16] MEDS ORDERED: CLOPIDOGREL BISULFATE 75 MG TAB PO SCH (09:00)
[2018-10-16] MEDS ORDERED: DOXYCYCLINE HYCLATE 100 MG CAP PO SCH (09:00)
[2018-10-16] MEDS ORDERED: ASPIRIN 81 MG CHEW PO SCH (09:00)
[2018-10-16] MEDS: SODIUM CHLORIDE 0.9% 1000ML 1,000 ML IV SCH (09:31)
--- NOTE | 2018-10-16 13:00 | Hospitalist Progress Note ---
Date of Service October 16, 2018 Assessment & Plan (1) Stroke: 1.7 cm left thalamus and left internal capsule infarction Admitted with symptoms of a stroke involving dysarthria and right hemiplegia Following stroke alert received TPA Initial CT scan of the head and CTA of the head and neck unremarkable Awaiting repeat his scans as per the protocol Does not have any risk factors Has had a similar episode about 1-1/2 to 2 years ago and was in the hospital for 1 day Lipid profile normal Echo: There is mild concentric LVH, LV wall motion is normal, EF 60 to 65%, interatrial septum is intact and no evidence of an atrial septal defect as assist with a administration of agitated saline contrast Appreciate library historian input and recommendation Appreciate neurologist input and recommendation Patient is clinically much improved with almost resolved of his symptoms Minimal dysarthria but no other neuro deficit We will continue outpatient speech therapy Like to go home this afternoon Lyme screen was found to be positive Doxycycline has been started empirically and today we will give a total of 14 days course Await Western blot Subjective 10/15 The patient was seen and examined in ICU He is a 58-year-old gentleman without significant past medical history and without on any prescription medicine was admitted with strokelike symptoms and received TPA His symptoms have been improving and almost resolved Only complaints minimal dysarthria 10/16 The patient was seen and examined in ICU Besides minimal dysarthria he does not have any other neurological symptoms He was transferred to telemetry unit for continued care Review of Systems Neurologic: + abnormal speech (Minimal dysarthria) Physical Exam Physical Exam: No apparent distress at rest Constitutional: well developed and well nourished; no acute distress Eyes: PERRL, conjunctivae normal, anicteric sclerae ENMT: external ear and nose normal, oropharynx normal Neck: trachea midline, no thyromegaly Respiratory: normal respiratory effort, lungs clear to auscultation Cardiovascular: RRR, no murmur, no edema Gastrointestinal (Abdomen): normal bowel sounds, soft, nontender, no hepatosplenomegaly Neurologic: normal touch/pain/proprioception and moves all extremities; no focal motor deficits Speech / Cognition: + abnormal speech (Minimal dysarthria) Lymphatic: no cervical or axillary lymphadenopathy Results & Data Vital Signs (Past 12 Hours) Vital Signs Temp Pulse Pulse Resp BP BP Pulse Ox 10/16/18 11:05 36.8 C 54 L 16 128/78 98 10/16/18 08:00 52 L 10/16/18 06:00 56 L 14 147/77 H 95 10/16/18 05:00 70 16 129/90 97 10/16/18 02:00 58 L 20 127/80 94 10/16/18 01:00 51 L 15 143/79 H 94 Laboratory Results Short CBC 10/15/18 10/16/18 Range/Units 03:20 04:53 WBC 6.16 6.98 (4.8-10.8) K/uL Hgb 15.2 16.1 (14.0-18.0) g/dL Hct 42.8 45.5 (42-52) % Plt Count 174 162 (130-400) K/uL BMP 10/16/18 04:53 Sodium 141 Potassium 4.3 Chloride 112 H Carbon Dioxide 24 BUN 16 Creatinine 1.22 Glucose 99 Calcium 8.2 L Diagnostic Findings MRI of the brain :1. There is a 1.7 cm focus of restricted diffusion centered in the left thalamus and left internal capsule. This is consistent with acute to subacute ischemia. 2. No additional foci of acute ischemia are identified. 3. There is no hemorrhage or mass effect. Medications Administered Current Inpatient Medications Aspirin (Aspirin Chew) 81 mg PO [facility] Stop: 11/15/18 08:59 Last Admin: 10/16/18 08:10 Dose: 81 mg Documented by: [facility]vastatin [facility]) [facility] Stop: 11/14/18 08:59 Last Admin: 10/16/18 08:10 Dose: 40 mg Documented by: Clopidogrel [facility]ulfate (Plavix) [facility] Stop: 11/15/18 08:59 Last Admin: 10/16/18 08:10 Dose: 75 mg Documented by: Doxycycline Hyclate (Vibramycin) 100 mg PO BID [facility] Stop: 10/28/18 21:01 Last Admin: 10/16/18 08:10 Dose: 100 mg Documented by: Gadobutrol (Gadavist 30ml) 7 ml IV ONCE PRN PRN Reason: Interaction Checking Stop: 10/19/18 11:07 Last Admin: 10/15/18 11:08 Dose: 7 ml Documented by: Miscellaneous (Icu Protocol For Hyperglycemia) 1 ea N/A PRN PRN; Protocol PRN Reason: Hyperglycemia Protocol Stop: 10/17/18 03:12 Miscellaneous Information (Pharmacist Discharge Med Rec Consult) 1 ea N/A DAILY PRN PRN Reason: Consult Stop: 11/14/18 03:20 (1) Stroke CVA mechanism: other Qualified Code(s): I63.89 - Other cerebral infarction
--- NOTE | 2018-10-16 14:01 | Neurology Progress Note ---
Date of Service October 16, 2018 Assessment & Plan (1) Stroke: 1. MRI - 1.7 cm focus of restricted diffusion centered in the left thalamus and left internal capsule. 2. aspirn 81 mg and plavix 75 mg continue for 21 days then likely stop plavix was not taking prior 3. hyper coag panel- will need forwarded to neurology in [facility] for further evaluation or treatment if needed 4. optimize HTN, HLD LDL <70 5. speech therapy follow up in [facility] 6. ok to discharge once medically stable. 7. ZIO/cardio net as outpatient for any irregular R/R Supervising Physician Co-Signing Physician Notes I have seen and discussed above patient with Dr Tiffani Gannon, neurology. Pt seen, examined, answered families questions. They will make an appt to see Dr Watson at [place]. Re RTW, it is difficult to know if there is cognitive dysfunction given the language dysfunction. May need neuropsych eval to help determine. No driving at present until cleared by primary or neurology. Again cognitive dysfunction difficult to test given language. A DRIVABLE assessment may need to be performed. Prelim lyme IGM pos, WB is pending, will need fu labs and possible retesting. KIMMY Gannon MD Leland Mckeon is a 58 year old male which no significant PMH. He is from the [facility]. he was fishing and was driving back with his buddies in the car when he was slurring speech, 911 was called and was brought into the hospital. He had flaccid R sided weakness and was given tPa and his weakness improved. His is still having word finding issues. His and friend are in the room and willing to call for the neurology follow up and speech therapy in his area which they are requesting [facility]. He understands he will need to take plavix 75 mg and aspirin 81 mg daily until his follow up appointment with neurology. Also needs blood pressure control and lipid control. denies CP, SOB, abdominal pain, one sided weakness, numbness tingling, N, V, swallowing issue, realized he is having word finding issues. Physical Exam Physical Exam: Gen: alert NAD lungs CTA CV RRR neuro: dysarthria for words, can identify president with giving options can identify correctly. smile eye brow raise symmetric tongue midline strength: 5/5 biceps triceps hand therapist physical bilaterally, 5/5 hip flex p atellar/plantar flex ext bilaterally reflexes bilaterally symmetric brisk. Results & Data Vital Signs (Past 12 Hours) Vital Signs Temp Pulse Pulse Resp BP BP Pulse Ox 10/16/18 11:05 36.8 C 54 L 16 128/78 98 10/16/18 09:00 64 14 136/85 96 10/16/18 08:00 36.7 C 64 13 134/86 95 10/16/18 07:00 56 L 13 116/73 93 10/16/18 06:00 56 L 14 147/77 H 95 10/16/18 05:00 70 16 129/90 97 10/16/18 02:00 58 L 20 127/80 94 Laboratory Results Abnormal lab results 10/15/18 10/16/18 10/16/18 Range/Units 03:20 04:53 04:53 RBC 4.50 L 4.67 L (4.7-6.1) M/uL MCH 34.5 H (25-34) pg MPV 10.7 H 10.5 H (7.4-10.4) fL Harlan # (Auto) 0.60 H (0.11-0.59) K/uL Chloride 112 H (98-107) mmol/L Calcium 8.2 L (8.5-10.1) mg/dl Diagnostic Findings CT head- repeat 10/15 24 hours after tPa here is an evolving lacunar infarct centered in the left thalamus. There is no hemorrhage or mass effect. No add itional foci of acute ischemia are identified by CT. (1) Stroke CVA mechanism: other Qualified Code(s): I63.89 - Other cerebral infarction
[2018-10-16] MEDS ORDERED: STROKE PATIENT DISCHARGE STA (15:06)
--- NOTE | 2018-10-16 16:01 | Pharmacy Report ---
Pharmacist Stroke Counseling - Date of Service October 16, 2018 - Scope: Pharmacy has been consulted to provide medication discharge counseling for this patient admitted with ischemic stroke as per the Pharmacist Discharge Counseling for Stroke Patients Protocol. - Medications on Discharge: Home Medications Medication Instructions Recorded Confirmed Unobtainable 10/15/18 10/15/18 New Rx's Medication Instructions Recorded aspirin 81 mg PO QAM 30 Days #30 tab 10/16/18 atorvastatin 40 mg PO QAM 30 Days #30 tab 10/16/18 clopidogrel 75 mg PO QAM 21 Days #21 tab 10/16/18 doxycycline hyclate 100 mg PO BID 20 Days #40 cap 10/16/18 - Action: The above medications, specifically ones for stroke treatment/prophylaxis, have been reviewed in detail with the patient and/or patient client account representative(s) prior to discharge. This includes indication, common adverse reactions, drug interactions, and medication administration. Medication counseling has been employed using the teach-back method to ensure understanding. - Outcome: The patient and/or patient client account representative(s) have demonstrated understanding of the medications. Please note, they are aware that the pharmacist will call them within 72 hours post-discharge to confirm that the appropriate medications are being taken and answer any further medication related questions the patient might have at that time. Contact information Individual to be contacted: patient Phone number: [phone] Additional comments: Patient was on Lipitor prior to admission (not listed on home med list) and denies side effects. Advised patient that Plavix Rx is for 21 days. He will need to discuss continuation/discontinuation of medication after 21 days with his Neurologist. Thank you for allowing pharmacy to be involved in the care of this patient. Please call [phone] or [phone] with any additional questions
--- NOTE | 2018-10-16 17:03 | Discharge Summary ---
Date of Service October 16, 2018 Admission HPI Per Admitting Provider DICTATED BY: Phillip Arizmendi MD DATE OF ADMISSION: 10/15/2018 CHIEF COMPLAINT: Acute CVA. HISTORY OF PRESENT ILLNESS: This is a 58-year-old male, apparently no past medical history, he is not from area, he is visiting, he seemed to went for fishing and was driving back with his buddies in the car when he was slurring speech, 911 was called and was brought into the hospital. Initially he had slurred speech and also flaccid right extremities. This episode happened around 9:30, he was in the ER, around 11:30, TPA was given, his weakness in the right extremities has improved. His speech has improved, but he still has some memory issues. He says he is seeing double vision, but counting the fingers fine. Could not get much history from the patient. He knows that he is in the hospital and tell the month and year of his date of . Knows that this is the 5th month, but he says the year is 2011. Was somewhat drowsy and goes back to sleep. Will not get any history from the patient at this time, brother was here who left by the time I saw the patient, tried to call his brother and went to his voicemail but brother called back. Brother says as far as he knows patient not taking any medications and don't have any medical problems. Brother was not with the patient when the episode happened. Admission Exam Per Admitting Provider GENERAL: The patient is moderate built, somewhat drowsy. VITAL SIGNS: Temperature 36.5, pulse 50, respiratory rate 13, blood pressure 128/81, oxygen 93% room air. HEENT: No pallor, no icterus. Pupils equal, round, and reactive to light. NECK: No JVD, no neck mass, no carotid bruit. CARDIOVASCULAR: S1, S2 heard, regular rate and rhythm, no murmur, no gallop. RESPIRATORY SYSTEM: Normal AP diameter. No accessory muscle use. No wheezing, no crackles. ABDOMEN: Soft, bowel sounds present. Nontender. No distention. CENTRAL NERVOUS SYSTEM: Alert and awake and oriented to name and place, not good with the dates. Power 5/5 in all extremities. His sensation is intact. Position sense intact. [id number] test normal. No pronator drift. Speech is clear. Obeys simple commands but comprehension impaired at this time. EXTREMITIES: No edema, no erythema. 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 and left internal capsular area, IgM for Lyme disease is positive, Western blot is pending Discharge Exam Constitutional well developed and well nourished; no acute distress Eyes PERRL, conjunctivae normal, anicteric sclerae ENMT external ear and nose normal, oropharynx normal Neck trachea midline, no thyromegaly Respiratory normal respiratory effort, lungs clear to auscultation Cardiovascular RRR, no murmur, no edema Gastrointestinal (Abdomen) normal bowel sounds, soft, nontender, no hepatosplenomegaly Neurologic normal touch/pain/proprioception and moves all extremities; no focal motor deficits Speech / Cognition: + abnormal speech (Minimal dysarthria) Lymphatic no cervical or axillary lymphadenopathy Discharge Data Allergies Allergy/AdvReac Type Severity Reaction Status Date / Time No Known Allergies Allergy Unverified 10/15/18 00:13 Consultations 10/15/18 01:14 ED Decision to Admit Stat 10/15/18 03:13 Consult Case Management - Discharge Planning Routine Consult Case Management - Discharge Planning Routine Consult Engineering Writer Routine 10/15/18 08:00 Consult Neurology Routine Ordered Studies 10/14/18 22:58 CT head/brain wo con Stat 10/14/18 23:35 CT angio head w con Urgent CT angio neck with con Urgent 10/15/18 03:13 MR brain wo/w con Urgent 10/15/18 22:45 CT head/brain wo con Urgent Hospital Course (1) Stroke: 1.7 cm left thalamus and left internal capsule infarction Admitted with symptoms of a stroke involving dysarthria and right hemiplegia Following stroke alert received TPA Initial CT scan of the head and CTA of the head and neck unremarkable Awaiting repeat his scans as per the protocol Does not have any risk factors Has had a similar episode about 1-1/2 to 2 years ago and was in the hospital for 1 day Lipid profile normal Echo: There is mild concentric LVH, LV wall motion is normal, EF 60 to 65%, interatrial septum is intact and no evidence of an atrial septal defect as assist with a administration of agitated saline contrast Appreciate multi spindle operator input and recommendation Appreciate neurologist input and recommendation Patient is clinically much improved with almost resolved of his symptoms Minimal dysarthria but no other neuro deficit We will continue outpatient speech therapy Like to go home this afternoon Lyme screen was found to be positive Doxycycline has been started empirically and today we will give a total of 14 days course Await Western blot Total Time Total Time Spent Total Time Spent (In Minutes): 35 minutes Total Time Includes: Examination of the Patient, Discharge Planning and Medication Reconciliation Discharge Plan Discharge Items Patient Disposition: Home - Self-Care Reason For Visit: STROKE LIKE SYMPTOMS Discharge Diagnosis: Stroke involving 1.7 cm left thalamus and left internal capsular area, IgM for Lyme disease is positive, Western blot is pending Condition: Good Discharge Goals: Decrease discomfort, Improve function and Increase independence Activity: Resume your previous activity Non-emergency contact: Primary Care Provider Call non-emergency contact if: you have any medication questions and your symptoms worsen Follow-up/Referrals: PCP,NO [Primary Care Provider] - (Please make an appointment with your primary care physician within 1 week. You will need neurology follow-up within 2 to 3 weeks. Also, you will need to have ZIO/CardioNet as an outpatient. Continue with speech therapy as an outpatient) Diet: Heart Healthy Addtl Provider Instructions: Please take precaution to avoid falls Risk Factors for Stroke: You can reduce your chances of stroke by working with your medical provider to adopt a healthy lifestyle. Some specific ways to lower your chance of stroke are: * If you are a smoker, now is the time to stop smoking cigarettes * If you are diabetic, improve the control of your blood sugars * Avoid excessive amounts of alcohol * Control high blood pressure * Lose weight if you are overweight * Be sure to lead an active lifestyle * Eat a healthy diet low in salt, cholesterol and fat You should know about other risk factors for stroke that you are unable to control. These include: * Age 55 years or older * Male gender * Certain racial groups: , or / * Family History of Stroke, Mini stroke or Heart Attack * Sickle Cell Disease Follow Up: It is important for you to keep your follow up appointments with your medical provider. Who to Call and When: Medical Emergencies: Call 911 immediately if you experience any of the following warning signs and symptoms of Stroke: * Sudden numbness or weakness of the face, arm or leg, especially on one side of the body * Sudden confusion, trouble speaking or understanding * Sudden trouble seeing in one or both eyes * Sudden trouble walking, dizziness, loss of balance or coordination * Sudden severe headache with no cause Do not delay calling 911 if you experience any warning signs or symptoms of a stroke. Delay in seeking medical attention may affect what treatments can be given to you. . Prescriptions: New atorvastatin 40 mg Tablet 40 mg PO QAM 30 Days Qty: 30 RF: 0 clopidogrel 75 mg Tablet 75 mg PO QAM 21 Days Qty: 21 RF: 0 aspirin 81 mg Tablet,Chewable 81 mg PO QAM 30 Days Qty: 30 RF: 0 doxycycline hyclate 100 mg Capsule 100 mg PO BID 20 Days Qty: 40 RF: 0 No Action Unobtainable RF: 0 Stand-Alone Forms: Medications to Prevent Stroke, [facility] Discharge Orders: Discharge Order (Routine); Ordered 10/16/18 Ordered By: Saranya Coffman Admission Data Admit Date/Time: 10/15/18 02:33 Attending Provider: Saranya Coffman Admit Provider: Phillip Arizmendi Primary Care Provider: PCP,NO Other Providers: Phillip Arizmendi ; Arie Mendez ; Tiffani Pineda ; Chicho Pace ; Tiffani Gannon ; Kayla Shankar ; Jerry Stoen Service: Telemetry Other Interventions: Discharge Summary Assessment (RN) Last Done: 10/16/18 15:27 DC Date/Time DO NOT enter until pt leaves facility: 10/16/18 16:30
--- NOTE | 2018-10-18 14:00 | Pharmacy Report ---
Pharmacist Post D/C Phone Note - Phone Note: Date of phone call: October 18, 2018. The patient was unable to be reached for a follow-up phone call within the 72 hour time frame. Discharge counseling pharmacist contact information has already been provided to the patient should questions arise. Thank you for allowing us to be involved in the care of this patient. Please note the patient's phone number is [phone] - Home Medications: Home Medications Medication Instructions Recorded Confirmed Unobtainable 10/15/18 10/15/18 New Rx's Medication Instructions Recorded aspirin 81 mg PO QAM 30 Days #30 tab 10/16/18 atorvastatin 40 mg PO QAM 30 Days #30 tab 10/16/18 clopidogrel 75 mg PO QAM 21 Days #21 tab 10/16/18 doxycycline hyclate 100 mg PO BID 20 Days #40 cap 10/16/18
[2018-10-19 04:01] LABS: 18KDIGG Band NONREACTIVE (NONREACTIVE); 23KDIGG Band NONREACTIVE (NONREACTIVE); 23KDIGM Band NONREACTIVE (NONREACTIVE); 28KDIGG Band NONREACTIVE (NONREACTIVE); 30KDIGG Band NONREACTIVE (NONREACTIVE); 39KDIGG Band NONREACTIVE (NONREACTIVE); 39KDIGM Band NONREACTIVE (NONREACTIVE); 41KDIGG Band REACTIVE (NONREACTIVE); 41KDIGM Band NONREACTIVE (NONREACTIVE); 45KDIGG Band NONREACTIVE (NONREACTIVE); 58KDIGG Band NONREACTIVE (NONREACTIVE); 66KDIGG Band NONREACTIVE (NONREACTIVE); 93KDIGG Band REACTIVE (NONREACTIVE); Lyme Antibodies, WB IgG NEGATIVE (NEGATIVE); Lyme Antibodies, WB IgM NEGATIVE (NEGATIVE)
[2018-10-19 17:45] LABS: Anti Nuclear Antibody Screen NEGATIVE (NEGATIVE); Anti-Thrombin III Activity 89 % activity (80-120); B2 Glycoprotein IgA <9 SAU (<=20); B2 Glycoprotein IgG <9 SGU (<=20); B2 Glycoprotein IgM <9 SMU (<=20); Lupus Anticoagulant Negative (Negative); Protein S Functional(Activity) 93 % (70-150)
--- NOTE | 2018-11-10 08:06 | Coding Query ---
CODING QUERY To promote full compliance with coding requirements relating to patient care, provider participation is requested in all cases of death surveys coder uncertainty. Please assist us with the question(s) below: Coding Question(s): Please clarify if there is a significant condition for the treatment of positive lyme screen. Physician's Response(s): The patient presented with a stroke and the lyme IgG and IgM were positive. Discussed with the patient and treatment provided with doxycycline. Thank you Mayda Villa Principal Diagnosis: "that condition established after study, to be chiefly responsible for occasioning the admission of the patient to the hospital for care." Co-Existing Principal Diagnosis: "when two or more diagnoses equally meet the criteria for principal diagnosis as determined by the circumstances of admission, diagnostic work up, and/or therapy provided, and the Alphabetic Index, Tabular List, or another coding guideline does not provide sequencing direction, any one of the diagnoses may be sequenced first." "When the physician has documented what appears to be a current diagnosis in the body of the record, but has not included the diagnosis in the final diagnostic statement, the physician should be asked whether the diagnosis should be added." (Source [facility]oding [facility] 2 QTR90. p3-4) CATHERINE
== END 2018-10-16 16:30 | disposition home or self-care (01) | DRG 65 ==
LOC: ED 23:07 → 1E 10-15 02:33 → 2N 10-16 10:12